=== PATIENT | female | born 1955 | race Caucasian/White ===

== ENCOUNTER → 2016-08-25 | Outpatient (CLI) | payer BC ==
[2016-08-25 08:56] LABS: CH 35.9; CHCM 33.9; HCT 47.7 % (34.0-46.0); HDW 2.63; HGB 15.7 gm/dL (11.4-16.0); MCH 34.9 pg (25.0-35.0); MCHC 32.8 g/dL (31.0-37.0); MCV 106.4 fL (80.0-100.0); Macrocytosis Moderate; Mean Platelet Volume 6.8; RBC 4.49 m/uL (3.80-5.40); RDW 14.3 % (11.5-15.5); WBC 5.1 k/uL (3.8-10.6)
[2016-08-25 09:04] LABS: INR 2.7 (<1.1); Prothrombin Time 25.7 sec (9.0-12.0)
[2016-08-25 09:26] LABS: Potassium 4.5 mmol/L (3.5-5.1)
== END | disposition home or self-care (01) ==
LOC: LABWHC1 07:55
PROVIDERS: ATTEND Internal Medicine Clinical Cardiac Electrophysiology
DX: I48.2 Chronic atrial fibrillation (principal); I49.01 Ventricular fibrillation; I42.8 Other cardiomyopathies
CPT/HCPCS: 36415; 80048; 85027; 85610

== ENCOUNTER 2016-09-08 11:43 | Day surgery (SDC) | payer BC ==
[2016-09-04 11:52] VITALS: BMI 25.0
[~2016-09-08 11:43] MED LIST: LACTATED RINGERS 1,000 ML IV SCH; ceFAZolin 1,000 MG in SODIUM CHLORIDE 0.9% IRRIGATIO 250 ML IRRIGATION ONE; ceFAZolin 2 GM in SODIUM CHLORIDE 0.9% 100 ML IVPB ONE
[2016-09-08 12:01] VITALS: RESP 16
[2016-09-08] MEDS ORDERED: SODIUM CHLORIDE 0.9% 1,000 ML IV ONE (12:11)
[2016-09-08 12:19] LABS: INR 1.5 (<1.1); Prothrombin Time 14.6 sec (9.0-12.0)
[2016-09-08] MEDS ORDERED: fentaNYL (PF) 50 MCG/ML 2 ML AMP ONE (14:20)
[2016-09-08] MEDS ORDERED: HYDROmorphone (PF) 1 MG/ML ONE (14:20)
[2016-09-08] MEDS ORDERED: MIDAZOLAM 2 MG/2 ML VIAL ONE (14:20)
[2016-09-08] MEDS ORDERED: LIDOCAINE 1% INJ 10MG/ML (20 ML MDV) ONE (14:20)
[2016-09-08] MEDS ORDERED: PROPOFOL 10 MG/ML 20 ML VIAL IV ONE (14:20)
[2016-09-08] MEDS ORDERED: LIDOCAINE 1% INJ 10MG/ML (20 ML MDV) SQ ONE ×2 (14:59→15:12)
[2016-09-08] MEDS ORDERED: ACETAMINOPHEN TAB 325 MG TAB PO PRN (15:34)
[2016-09-08] MEDS ORDERED: ACETAMINOPHEN IV (For NPO) 1,000 MG in EMPTY BAG 1 BAG IVPB ONE (15:34)
--- NOTE | 2016-09-08 17:15 | PCN ---
DATE OF PROCEDURE: This a 61 -year-old female who has a history of nonischemic cardiomyopathy and paroxysmal atrial fibrillation. She has past history of ventricular fibrillation and cardiac arrest, normal coronary arteries, left ventricular ejection fraction is severely reduced in 2007 to 30%. Last 2-D echo showed ( ) ejection fraction about 50%, ( ) congestive heart failure. The patient's device is at [facility], normal battery depletion. He is brought in for ICD generator change. The patient was brought to the EP Lab in a fasting state. Written informed consent was obtained prior to the procedure. The left shoulder area was prepped and draped as per protocol. 1% Lidocaine was used for local anesthesia. A 4 cm incision was made parallel to the deltopectoral groove about 1.5 cm medial to it. The incision was carried down to the level of the pectoralis muscle. A subfascial pocket was made. Hemostasis was assured and partial capsulectomy was performed and generator was a chronic generator ([id number], serial number [id number]) was explanted. The leads interrogated and the new generator was implanted. This was a [employer] medical model number PC4909-61Q, serial number [id number]. The chronic RV lead used was a Medtronic dual coil lead, model 6944, serial number [id number]. The R waves are 23.6 mV, pacing impedance of 740 ohms, pacing threshold 0.4 volts at 0.5 ms. The new generator was implanted and the wounds closed in 3 layers and dressed per protocol. Patient was in atrial fibrillation at the time of this study and INR was subtherapeutic. Therefore DFT testing will be deferred. Patient tolerated the procedure well without any immediate acute complications. IMPRESSION: Single-chamber ICD generator change normal battery depletion in this lady with history of ventricular fibrillation cardiomyopathy, Class II congestive heart failure and paroxysmal atrial fibrillation.
--- NOTE | 2016-09-08 17:18 | LTR ---
September 08, 2016 RE: Maria De JesusClover mensah Zak Dear Dr. Peter Moon: I had the pleasure of seeing Clover Maria De Jesusmakenna in electrophysiology follow-up. Clover underwent successful ICD generator change for normal battery depletion. She will be in the hospital overnight. After receiving antibiotics, she will be discharged home. She will continue to follow up with you as before. No changes in her medications have been made. Thank you for entrusting me in the care of your patient. Warm regards, Sincerely, ELIAS MCGUIRE MD
[2016-09-08] MEDS ORDERED: PRAVASTATIN SODIUM 20 MG TAB PO SCH (21:00)
[2016-09-08] MEDS: ceFAZolin 2 GM in SODIUM CHLORIDE 0.9% 100 ML IVPB SCH (21:15)
[2016-09-08] MEDS: METOPROLOL TARTRATE 50 MG TAB PO SCH (21:44)
[2016-09-08] MEDS: HYDROcodone/APAP 5-325MG 1 EACH TAB PO PRN (22:39)
[2016-09-09] MEDS: ceFAZolin 2 GM in SODIUM CHLORIDE 0.9% 100 ML IVPB SCH ×3 (03:23→13:58)
[2016-09-09] MEDS: HYDROcodone/APAP 5-325MG 1 EACH TAB PO PRN ×2 (03:23→08:02)
[2016-09-09] MEDS ORDERED: LEVOTHYROXINE 100 MCG TAB PO SCH (06:30)
[2016-09-09] MEDS: SODIUM CHLORIDE 0.9% 1,000 ML IV SCH (07:58)
--- NOTE | 2016-09-09 08:05 | P.PCN ---
Preoperative Diagnosis: She is doing well. No chest discomfort but she is tender over the ICD site. Breath sounds are normal heart sounds are normal Vitals are stable Afebrile 97.8F, pulse rate in the 60s, blood pressure 116/68 mmHg Breath sounds are normal Impression History of ventricular fibrillation status post ICD implant ICD at [facility], normal battery depletion History of cardio myopathy Paroxysmal atrial fibrillation Plan Discharge home after IV antibiotics Follow up in 5 days the office device clinic Follow-up with Dr. Marion in 4-6 months Postoperative Diagnosis: Procedure(s) Performed: Implants: Indications for Procedure: Operative Findings: Description of Procedure:
[2016-09-09] MEDS ORDERED: LOSARTAN 25 MG TAB PO SCH (09:00)
[2016-09-09] MEDS ORDERED: DIGOXIN 125 MCG TAB PO SCH (09:00)
[2016-09-09] MEDS ORDERED: METOPROLOL TARTRATE 50 MG TAB PO SCH (09:00)
[2016-09-09 11:32] VITALS: BP 95/58; PULSE 60; TEMP 98
[2016-09-09] MEDS: METOPROLOL TARTRATE 50 MG TAB PO SCH (12:08)
== END 2016-09-09 15:30 | disposition home or self-care (01) ==
LOC: CATHEP 11:43 → 3OBS 15:33 → CATHEP 09-09 15:30
PROVIDERS: ATTEND Internal Medicine Clinical Cardiac Electrophysiology
DX: Z45.02 Encounter for adjustment and management of automatic implantable cardiac defibrillator (principal); I48.0 Paroxysmal atrial fibrillation; I42.6 Alcoholic cardiomyopathy; I50.9 Heart failure, unspecified; E78.5 Hyperlipidemia, unspecified; Z79.01 Long term (current) use of anticoagulants; Z79.899 Other long term (current) drug therapy; Z88.1 Allergy status to other antibiotic agents; Z91.040 Latex allergy status
CPT/HCPCS: 33262; 85610; C1722; J2250; J0690 ×3; J2001; J3010; J1170; J0131; J2704

== ENCOUNTER → 2017-01-08 | Outpatient (CLI) | payer BC ==
[2017-01-08 15:54] LABS: CH 35.3; CHCM 32.2; HCT 47.6 % (34.0-46.0); HDW 2.61; HGB 15.7 gm/dL (11.4-16.0); MCH 36.3 pg (25.0-35.0); MCHC 32.9 g/dL (31.0-37.0); MCV 110.1 fL (80.0-100.0); Macrocytosis Marked; RBC 4.32 m/uL (3.80-5.40); RDW 14.1 % (11.5-15.5); WBC 4.9 k/uL (3.8-10.6)
[2017-01-08 16:16] LABS: Calcium 9.7 mg/dL (8.4-10.2); Potassium 4.1 mmol/L (3.5-5.1)
== END | disposition home or self-care (01) ==
LOC: LABWHC1 15:19
PROVIDERS: ATTEND Internal Medicine Clinical Cardiac Electrophysiology
DX: I48.2 Chronic atrial fibrillation (principal); I42.8 Other cardiomyopathies; I49.01 Ventricular fibrillation
CPT/HCPCS: 36415; 80048; 85027

== ENCOUNTER → 2017-04-23 | Outpatient (CLI) | payer BC ==
[2017-04-23 08:48] LABS: Basophils % (A) 0 %; Eosinophils # (A) 0.1 k/uL (0-0.7); Eosinophils % (A) 2 %; HCT 44.7 % (34.0-46.0); HGB 15.1 gm/dL (11.4-16.0); Lymphocytes # (A) 1.9 k/uL (1.0-4.8); Lymphocytes % (A) 39 %; MCH 34.4 pg (25.0-35.0); MCHC 33.7 g/dL (31.0-37.0); MCV 101.9 fL (80.0-100.0); Macrocytosis Slight; Mean Platelet Volume 6.8; Monocytes # (A) 0.4 k/uL (0-1.0); Monocytes % (A) 7 %; Neutrophils # (A) 2.4 k/uL (1.3-7.7); Neutrophils % (A) 49 %; Platelet Count 271 k/uL (150-450); RBC 4.39 m/uL (3.80-5.40); RDW 13.7 % (11.5-15.5); WBC 4.8 k/uL (3.8-10.6)
[2017-04-23 09:13] LABS: Albumin 4.2 g/dL (3.5-5.0); Calcium 9.9 mg/dL (8.4-10.2); Potassium 4.3 mmol/L (3.5-5.1); Total Bilirubin 0.9 mg/dL (0.2-1.3)
[2017-04-23 09:29] LABS: T4, Free (Free Thyroxine) 1.46 ng/dL (0.78-2.19)
== END | disposition home or self-care (01) ==
LOC: LABWHC1 08:24
PROVIDERS: ATTEND Physician Assistant
DX: Z00.00 Encounter for general adult medical examination without abnormal findings (principal); I10 Essential (primary) hypertension; Z20.9 Contact with and (suspected) exposure to unspecified communicable disease
CPT/HCPCS: 36415; 80053; 80061; 84439; 84443; 85025; 86803

== ENCOUNTER → 2017-06-18 | Outpatient (CLI) | payer BC ==
[2017-06-18 13:20] LABS: Calcium 9.7 mg/dL (8.4-10.2); Potassium 4.4 mmol/L (3.5-5.1)
[2017-06-18 13:27] LABS: MCHC 33.3 g/dL (31.0-37.0); MCV 102.2 fL (80.0-100.0); Macrocytosis Slight; Mean Platelet Volume 7.4; Platelet Count 203 k/uL (150-450); RBC 4.11 m/uL (3.80-5.40); RDW 14.5 % (11.5-15.5); WBC 5.2 k/uL (3.8-10.6)
== END | disposition home or self-care (01) ==
LOC: LABWHC1 12:24
PROVIDERS: ATTEND Internal Medicine Clinical Cardiac Electrophysiology
DX: I49.01 Ventricular fibrillation (principal); I48.0 Paroxysmal atrial fibrillation
CPT/HCPCS: 36415; 80048; 85027

== ENCOUNTER 2017-07-02 08:45 | Day surgery (SDC) | payer BC ==
[2017-06-30 09:35] VITALS: BMI 24.3
[2017-07-02] MEDS: SODIUM CHLORIDE 0.9% 1,000 ML IV SCH (11:55)
[2017-07-02 12:19] LABS: INR 1.9 (<1.2); Prothrombin Time 16.9 sec (9.0-12.0)
[2017-07-02] MEDS ORDERED: MIDAZOLAM 2 MG/2 ML VIAL ONE ×3 (12:32→16:15)
[2017-07-02] MEDS ORDERED: HEPARIN SODIUM,PORCINE 5,000 UNIT/ML 1 ML VIAL ONE (16:15)
[2017-07-02] MEDS ORDERED: ETOMIDATE 2 MG/ML 10 ML VIAL ONE (16:15)
[2017-07-02] MEDS ORDERED: ePHEDrine SULFATE/0.9% NACL/PF 50 MG/5 ML SYRINGE IV ONE (16:15)
[2017-07-02] MEDS ORDERED: SUCCINYLCHOLINE CHLORIDE 100 MG/5 ML SYR IV ONE (16:15)
[2017-07-02] MEDS ORDERED: LIDOCAINE 1% INJ 10MG/ML (20 ML MDV) ONE (16:15)
[2017-07-02] MEDS ORDERED: PHENYLEPHRINE-0.9% NACL SYG 1 MG/10 ML SYRINGE ONE (16:15)
[2017-07-02] MEDS ORDERED: PROTAMINE SULFATE 10 MG/ML 5 ML VIAL IV ONE (16:15)
[2017-07-02] MEDS ORDERED: fentaNYL (PF) 50 MCG/ML 2 ML AMP ONE (16:15)
[2017-07-02] MEDS ORDERED: ceFAZolin IN SWFI 2 GM/20 ML SYRINGE IVP STA (16:26)
[2017-07-02] MEDS ORDERED: LIDOCAINE 2% INJ 20 MG/ML SQ ONE (16:55)
[2017-07-02] MEDS ORDERED: HEPARIN SOD,PORK IN 0.45% NACL 25,000 UNIT in 0.45% NACL 1 500ML.BAG IV ONE (17:06)
[2017-07-02] MEDS ORDERED: IOPAMIDOL-370 100ML BTL INJ ONE (18:45)
--- NOTE | 2017-07-02 19:17 | P.PCN ---
Preoperative Diagnosis: Procedures performed (PVI - CRYO Ablation) Invasive hemodynamic monitoring while general anesthesia, right femoral arterial line for monitoring and sampling Comprehensive diagnostic EP study with attempted arrhythmia induction CS pacing and recording Drug infusion Catheter the mapping of the tachycardia (NOT 3D mapping) Intracardiac echocardiography Pulmonary vein isolation with transseptal and comprehensive EPS, [id number] Procedure details Patient was brought to the EP lab in a fasting state. Written informed consent was obtained prior to the procedure. Procedure performed under general anesthesia After initial muscle relaxant use, muscle relaxants were not given thereafter in order to assess phrenic nerve during procedure Patient prepped and draped as per protocol Full cryo-set up with standard preparation of the cryoablation tools done Femoral Venous access obtained on the right and left groins Sheaths placed Diagnostic catheters for the high right atrium, phrenic nerve stimulation and pacing, His bundle, RV and coronary sinus placed Intracardiac echo catheter placed Long sheath placed in the right atrium Left and right transseptal catheterization performed under intracardiac echo guidance Intravenous heparin with aCT above 300 Later, catheter positioning and balloon positioning under intracardiac echo Baseline measurements Initially patient was in atrial fibrillation. At the end of the procedure she aspirin tracely converted to sinus rhythm as I was removing the cryo sheath through the fossa ovalis QRS 88 ms Victoriano rhythm CO interval 150 ms sinus cycle length 1053 ms, QT interval 423 ms sinus node recovery time 1057 . AV node Wenckebach block 400 ms diagnostic EP study with drug infusion Atrial pacing performed from the high right atrium and the coronary sinus Transseptal catheterization performed RA pressure 12/6/10 LA pressure 19/6/12 Transseptal catheterization performed with standard sheath. The cryoablation sheath was then placed with an over the wire exchange without any acute complications. All 4 pulmonary veins were isolated in the following sequence: Left superior followed by left inferior followed by right superior followed by right inferior The cryo-ablation balloon was placed at the os of each vein 1.5 mL of IV dye was injected to confirm an occluded vein Goal during cryoablation was to achieve -30C in the first 30 seconds. If not the balloon was repositioned to obtain this result After completion of Cryoblation with durations from 180-240 seconds, entrance block was confirmed with the Attain circular catheter in a roving fashion around the antrum of the pulmonary veins Phrenic nerve pacing was performed from the SVC, right innominate vein area and diaphragm voltage was monitored as well as manually Parameter goals for each cryo freeze -30C by 30 seconds -40C by 60 seconds Mediated between minus 40-55 Thaw time greater than 10 seconds Balloon visualized by intracardiac echo to ensure that the proximal one third was within the left atrium/antrum Left superior pulmonary vein Single cryoablation, excellent temperatures complete isolation Left inferior pulmonary vein Single 3 second cryo lesion excellent temperatures complete isolation Right superior pulmonary vein, during phrenic nerve pacing First cryo lesion 90 seconds vein was isolated 90 seconds but temperature is a suboptimal Second cryoablation of 128 seconds with complete isolation but transient phrenic nerve paresis requiring premature termination of the cryoablation Right inferior pulmonary vein, during phrenic nerve pacing Single cryoablation, 180 seconds, complete isolation At the end of the procedure the Achieve catheter was once again used to check for entrance block Phrenic nerve stimulation was performed to confirm diaphragmatic stimulation the end of the procedure Cine fluoroscopy was performed at the very end of the procedure to confirm movement of both diaphragms with inspiration and expiration At the end of the procedure the patient was extubated Heparin was reversed Venous sheaths were removed and hemostasis assured Result Successful pulmonary vein isolation using cryo-ablation Right-sided esophagus which required deflection Complete entrance block in all 4 veins confirmed Evidence of phrenic nerve paresis, transient while performing cryoablation of the right superior pulmonary vein, at 128 seconds into the cryoablation Patient had previously received a 90 seconds cryoablation in this vein Complete recovery of phrenic nerve function within 10 minutes Anesthesia: GETA Condition: stable Disposition: observation
[2017-07-02] MEDS ORDERED: ACETAMINOPHEN IV (For NPO) 1,000 MG in EMPTY BAG 1 BAG IVPB ONE (19:20)
[2017-07-02] MEDS ORDERED: ACETAMINOPHEN TAB 325 MG TAB PO PRN (19:20)
[2017-07-02] MEDS ORDERED: HYDROcodone/APAP 5-325MG 1 EACH TAB PO PRN (19:20)
[2017-07-02] MEDS ORDERED: FAMOTIDINE 20 MG TAB PO SCH (21:00)
[2017-07-02] MEDS ORDERED: PRAVASTATIN SODIUM 20 MG TAB PO SCH (21:00)
[2017-07-02] MEDS: MAGNESIUM OXIDE 400 MG TAB PO SCH (21:51)
[2017-07-02] MEDS: APIXABAN 5 MG TAB PO SCH (21:51)
[2017-07-03] MEDS: SODIUM CHLORIDE 0.9% 1,000 ML IV SCH (02:47)
[2017-07-03] MEDS ORDERED: LEVOTHYROXINE 100 MCG TAB PO SCH (06:30)
[2017-07-03 07:54] LABS: Calcium 9.2 mg/dL (8.4-10.2); Potassium 4.5 mmol/L (3.5-5.1)
[2017-07-03] MEDS ORDERED: RX INFO: IV CONTRAST WAS GIVEN 1 EACH MISC MISCELLANE PRN (08:24)
[2017-07-03 08:25] VITALS: RESP 16
--- NOTE | 2017-07-03 08:34 | P.DS ---
Providers Attending physician: Bo Loyola Primary care physician: Peter Moon [facility] Course: Patient is doing well. She is lying comfortably in bed. Yesterday she had a bit of oozing from the groin were today her groins healing very well that is no hematoma there is no bleeding. She has no shortness of breath she is a mild discomfort in the chest and some discomfort in the left arm. She has a sore throat Rhythm is normal On examination blood pressure 104/52 mmHg pulse rate in the 70s, afebrile 97.6F Breath sounds are clear. No rhonchi no crackles no rub S1-S2 is normal no murmurs no gallops no rub Abdomen soft nontender Extremity is warm no edema No hematoma in either groins Impression Paroxysmal atrial fibrillation with RVR resulting in ICD shocks Status post pulmonary vein isolation using the cryoablation technique Transient right middle paresis during cryoablation of the right superior pulmonary vein Rapid resolution within 10 minutes Total cryo time for the right-sided pulmonary vein was about 4 minutes and the vein was completely isolated Complete isolation of all other veins Likely extrapulmonary foci of atrial fibrillation along the anterior septum and the fossa ovalis This was discussed with the patient Right-sided esophagus requiring deflection during the procedure Past history of cardio myopathy which has resolved History of ventricular fibrillation resulting in implantation of an ICD many years back Plan Reduce metoprolol to 50 mg twice daily Continue amiodarone 100 mg by mouth daily for 3 months and then I will consider stopping INR was subtherapeutic on warfarin Switched to ELIQUIS 5 mg twice daily which she will continue for 2 months and then we will go back to warfarin Follow-up in the office in one week attention YARITZA Jain/Dr. Loyola Patient Condition at Discharge: Stable Plan - Discharge Summary Discharge Rx Participant: No New Discharge Prescriptions: New Apixaban [Eliquis] 5 mg PO DAILY #60 tablet Discontinued Warfarin [Coumadin] 5 mg PO SUTUTHSA Warfarin [Coumadin] 2.5 mg PO MOWEFR No Action valACYclovir HCL [Valtrex] 1,000 mg PO DAILY Pravastatin Sodium [Pravachol] 20 mg PO HS Levothyroxine Sodium [Synthroid] 100 mcg PO DAILY [place]-3 Acid Ethyl Esters [Lovaza] 1 gm PO BID Calcium Carb-Vit D 500Mg-200Un [Oscal 500+D] 1 tab PO DAILY Folic Acid 1 mg PO DAILY Magnesium Oxide [Mag-Ox] 400 mg PO BID #180 tab Metoprolol Tartrate [Lopressor] 50 mg PO TID #270 tab Nitroglycerin Sl Tabs [Nitrostat] 0.4 mg SUBLINGUAL Q5M PRN #25 tab PRN Reason: Chest Pain Furosemide [Lasix] 20 mg PO DAILY PRN PRN Reason: Edema Amiodarone [Cordarone] 100 mg PO DAILY Discharge Medication List Pravastatin Sodium [Pravachol] 20 mg PO HS 05/17/15 [History] valACYclovir HCL [Valtrex] 1,000 mg PO DAILY 05/17/15 [History] Levothyroxine Sodium [Synthroid] 100 mcg PO DAILY 09/04/16 [History] Calcium Carb-Vit D 500Mg-200Un [Oscal 500+D] 1 tab PO DAILY 05/09/17 [History] Folic Acid 1 mg PO DAILY 05/09/17 [History] [place]-3 Acid Ethyl Esters [Lovaza] 1 gm PO BID 05/09/17 [History] Magnesium Oxide [Mag-Ox] 400 mg PO BID #180 tab 05/15/17 [Rx] Metoprolol Tartrate [Lopressor] 50 mg PO TID #270 tab 05/15/17 [Rx] Nitroglycerin Sl Tabs [Nitrostat] 0.4 mg SUBLINGUAL Q5M PRN #25 tab 05/15/17 [Rx ] Amiodarone [Cordarone] 100 mg PO DAILY 06/30/17 [History] Furosemide [Lasix] 20 mg PO DAILY PRN 06/30/17 [History] Apixaban [Eliquis] 5 mg PO DAILY #60 tablet 07/02/17 [Rx] Follow up Appointment(s)/Referral(s): Bo Loyola MD [STAFF PHYSICIAN] - 1 Week Activity/Diet/Wound Care/Special Instructions: Post EP study - Ablation instructions 1. Keep access sites dry for 2 days. 2. No heavy lifting or straining for 2 days. 3. Avoid bending the hips repeatedly for 2 days. 4. You may go up and down stairs slowly Call if the following is noted 1. Bleeding, increasing swelling or pain at the access sites. 2. Increasing chest discomfort, especially upon taking a deep breath. 3. Increasing shortness of breath, at rest or with exertion. 4. Undue cough / phlegm 5. Difficulty or pain while swallowing. 6. Pain or change in color in the extremities. 7. Fever, chills, rigors. 8. Increasing headache or neurologic symptoms. 9. Dizziness, fainting, palpitations Stop Coumadin Start ELIQUIS 5 g twice daily Please ask machine adjuster leader case trim to get her 1 month supply of ELIQUIS Continue all other medications unchanged Discharge Disposition: HOME SELF-CARE
[2017-07-03] MEDS ORDERED: SODIUM CHLORIDE 0.9% 1,000 ML IV SCH (08:45)
[2017-07-03] MEDS: MAGNESIUM OXIDE 400 MG TAB PO SCH (08:47)
[2017-07-03] MEDS: APIXABAN 5 MG TAB PO SCH (08:47)
[2017-07-03] MEDS ORDERED: AMIODARONE 100 MG TAB PO SCH (09:00)
--- NOTE | 2017-07-03 11:33 | CT ---
EXAMINATION TYPE: CT chest w con DATE OF EXAM: 07/03/2017 COMPARISON: NONE HISTORY: Ablation for atrial fibrillation, r/o mediastinal air CT DLP: 273.9 mGycm. Automated Exposure Control for Dose Reduction was Utilized. TECHNIQUE: CT scan of the thorax is performed following with IV Contrast, patient injected with 80 m L of Isovue 300. FINDINGS: LUNGS: There is tiny right pleural effusion. There is bibasilar curvilinear dependent atelectasis. Th ere is additional bibasilar linear atelectasis and/or scarring. No suspicious nodule or mass is prese nt. There is more focal atelectasis or consolidation indistinct from esophagus right infrahilar level near axial image 34 level of the azygoesophageal recess at level of the draining right inferior pulm onary vein axial image 36. MEDIASTINUM: There are no greater than 1 cm hilar or mediastinal lymph nodes. There are some prominen t but subcentimeter lymph nodes seen for reference pericarinal lymph node measuring 7 x 5 mm on axial image 24. No pericardial effusion is seen. There is persistent cardiomegaly with right sided pacema ker/defibrillator terminating in right ventricle. Mild fat stranding anterior superior mediastinum is present near axial image 21, evaluation slightly suboptimal due to artifact from pacemaker. There is fairly moderate to severe eccentric mixed plaque in the left subclavian artery most prominent near a xial image 14, no significant greater than 50% stenosis is clearly seen. No suspicious mediastinal ai r is identified. Visualized portion of esophagus is unremarkable. OTHER: Some high dense material in dependent portion of stomach is of uncertain etiology presumed rel ated to ingested food product. No suspicious hyperdense material is seen in the esophagus. IMPRESSION: No mediastinal air is seen. Perhaps mild anterior superior mediastinitis though this is f ar away from the area of ablation for atrial fibrillation. Focal atelectasis or consolidation at leve l of draining right inferior pulmonary vein adjacent to mid to distal aspect of esophagus is noted.
[2017-07-03] MEDS ORDERED: FOLIC ACID 1 MG TAB PO SCH (12:00)
[2017-07-03 16:29] VITALS: BP 119/55; PULSE 72; TEMP 97
== END 2017-07-03 17:49 | disposition home or self-care (01) ==
LOC: CATHEP 08:45 → 3OBS 18:46 → CATHEP 07-03 17:49
PROVIDERS: ATTEND Internal Medicine Clinical Cardiac Electrophysiology
DX: I48.0 Paroxysmal atrial fibrillation (principal); Z79.01 Long term (current) use of anticoagulants; I42.0 Dilated cardiomyopathy; I49.01 Ventricular fibrillation; E78.5 Hyperlipidemia, unspecified; Z95.810 Presence of automatic (implantable) cardiac defibrillator; N18.9 Chronic kidney disease, unspecified; Z85.72 Personal history of non-Hodgkin lymphomas; Z92.21 Personal history of antineoplastic chemotherapy; Z79.899 Other long term (current) drug therapy; Z88.1 Allergy status to other antibiotic agents; Z88.8 Allergy status to other drugs, medicaments and biological substances
CPT/HCPCS: 85347; 93662; 93609; 93656; 80048; 85610; 71260; C1894 ×3; C1769 ×4; C1730 ×2; C1759; C1893; C1733; C1766; J2001; J2250; J1644; J0690; Q9967 ×2

== ENCOUNTER → 2017-07-09 | Outpatient (CLI) | payer BC ==
[2017-07-09 10:16] LABS: Calcium 10.1 mg/dL (8.4-10.2); Potassium 4.6 mmol/L (3.5-5.1)
== END | disposition home or self-care (01) ==
LOC: LABWHC1 08:47
PROVIDERS: ATTEND Internal Medicine Clinical Cardiac Electrophysiology
DX: N18.9 Chronic kidney disease, unspecified (principal)
CPT/HCPCS: 36415; 80048

== ENCOUNTER → 2018-04-21 | Outpatient (CLI) | payer BC ==
--- NOTE | 2018-04-24 12:05 | MM ---
Reason for exam: screening (asymptomatic). Last mammogram was performed 2 years and 4 months ago. History: Patient is postmenopausal and has history of other cancer at age 42. ([place]) Family history of breast cancer in maternal grandmother at age 60. Benign MG pre op needle loc RT of the right breast, May 18, 2015. MG discontinued stereo core RT of the right breast, May 17, 2015. Benign right breast needle localzation of both breasts, March 01, 2012. Cancelled Right Mammotome of the right breast, February 23, 2012. MG Screening Mammo w CAD Bilateral CC and MLO view(s) were taken. Prior study comparison: December 26, 2015, right breast MG diagnostic mammo RT w CAD. April 24, 2015, right breast MG work up mamm w CAD RT. The breast tissue is heterogeneously dense. This may lower the sensitivity of mammography. There are benign-appearing bilateral calcifications. Stable distortion of the right upper central breast at posterior depth from benign excisional biopsy in 2016. ASSESSMENT: Benign, BI-RAD 2 RECOMMENDATION: Routine screening mammogram of both breasts in 1 year.
== END | disposition home or self-care (01) ==
LOC: RADMAMWWP 07:49
PROVIDERS: ATTEND Family Medicine
DX: Z12.31 Encounter for screening mammogram for malignant neoplasm of breast (principal)
CPT/HCPCS: 77067

== ENCOUNTER → 2019-02-04 | Outpatient (CLI) | payer BC ==
--- NOTE | 2019-02-04 14:33 | US ---
EXAMINATION TYPE: US kidneys/renal and bladder DATE OF EXAM: 02/04/2019 COMPARISON: US 01/03/16 CLINICAL HISTORY: N18.3 Chronic kidney disease, stage 3 (moderate). EXAM MEASUREMENTS: Right Kidney: 10.4 x 4.1 x 3.6 cm Left Kidney: 10.7 x 4.4 x 4.2 cm Post Void Residual Volume: 11.7 mL Right Kidney: No hydronephrosis or masses seen, thinning of the renal cortex. Left Kidney: No hydronephrosis or masses seen, thinning of the renal cortex. Bladder: wnl Bilateral Jets seen: Yes Normal Post Void Residual: Yes There is no evidence for hydronephrosis at this point in time. No nephrolithiasis is seen. No kika s are identified. The urinary bladder is anechoic. Bilateral ureteral jets are seen. IMPRESSION: Sonographic sequela of medical renal disease. No hydronephrosis or nephrolithiasis of eit her kidney. No new suspicious mass.
== END | disposition home or self-care (01) ==
LOC: RADUSWWP 13:38
PROVIDERS: ATTEND Internal Medicine Nephrology
DX: N18.3 Chronic kidney disease, stage 3 (moderate) (principal)
CPT/HCPCS: 76770

== ENCOUNTER → 2019-05-03 | Outpatient (CLI) | payer BC ==
[2019-05-03 14:50] LABS: Appearance,Urine Clear (Clear); Basophils % (A) 1 %; Bilirubin,Urine Negative (Negative); Blood,Urine Negative (Negative); Color,Urine Light Yellow; Eosinophils # (A) 0.1 k/uL (0-0.7); Eosinophils % (A) 2 %; Glucose,Urine (UA) Negative (Negative); HCT 45.6 % (34.0-46.0); HGB 15.3 gm/dL (11.4-16.0); Ketones,Urine Negative (Negative); Leukocyte Esterase,Urine Negative (Negative); Lymphocytes # (A) 1.4 k/uL (1.0-4.8); Lymphocytes % (A) 31 %; MCH 34.8 pg (25.0-35.0); MCHC 33.5 g/dL (31.0-37.0); Macrocytosis Slight; Monocytes # (A) 0.3 k/uL (0-1.0); Monocytes % (A) 7 %; Neutrophils # (A) 2.5 k/uL (1.3-7.7); Neutrophils % (A) 56 %; Nitrite,Urine Negative (Negative); PH, Urine 5.5 (5.0-8.0); Platelet Count 234 k/uL (150-450); Protein,Urine Negative (Negative); RBC 4.38 m/uL (3.80-5.40); RDW 13.2 % (11.5-15.5); Specific Gravity,Urine 1.007 (1.001-1.035); Urobilinogen,Urine <2.0 mg/dL (<2.0); WBC 4.4 k/uL (3.8-10.6)
[2019-05-03 19:06] LABS: Protein, Total 6.8 g/dL (6.2-8.2)
[2019-05-03 19:23] LABS: % Iron Saturation 21.24 (12.00-45.00); African American GFR (CKD) 36.6 (60.0-200.0); Albumin 4.8 g/dL (3.80-4.90); Anion Gap 11.4 mmol/L (4.00-12.00); BUN/Creat Ratio 20.59 Ratio (12.00-20.00); Calcium 9.7 mg/dL (8.7-10.3); Carbon Dioxide 26.6 mmol/L (21.6-31.8); Magnesium 2.1 mg/dL (1.5-2.4); Non-African American GFR(CKD) 31.5 (60.0-200.0); Phosphorus 2.9 mg/dL (2.4-5.1); Potassium 3.9 mmol/L (3.5-5.5); Uric Acid 7.1 mg/dL (2.9-7.7)
[2019-05-03 22:29] LABS: Creatinine,Urine Random 39.7 mg/dL
[2019-05-03 22:54] LABS: Total Protein,Urine Random <4.0 mg/dL (0.0-13.5)
[2019-05-04 13:50] LABS: Albumin 4.47 g/dL (3.80-4.90); Gamma Globulin 0.83 g/dL (0.70-1.50)
== END | disposition home or self-care (01) ==
LOC: LABWHC1 14:14
PROVIDERS: ATTEND Internal Medicine Nephrology
DX: N39.0 Urinary tract infection, site not specified (principal); N18.3 Chronic kidney disease, stage 3 (moderate); E55.9 Vitamin D deficiency, unspecified; N25.81 Secondary hyperparathyroidism of renal origin; M10.9 Gout, unspecified; D63.1 Anemia in chronic kidney disease; R80.9 Proteinuria, unspecified
CPT/HCPCS: 36415; 80048; 81003; 82040; 82306; 82570; 82728; 83540; 83550; 83735; 83970; 84100; 84156; 84165; 84550; 85025; 86335

== ENCOUNTER → 2019-06-07 | Outpatient (CLI) | payer BC ==
--- NOTE | 2019-06-08 11:19 | MM ---
Reason for exam: screening (asymptomatic). Last mammogram was performed 1 year and 2 months ago. History: Patient is postmenopausal and has history of other cancer at age 42. Family history of breast cancer in maternal grandmother at age 60. Benign MG pre op needle loc RT of the right breast, May 18, 2015. MG discontinued stereo core RT of the right breast, May 17, 2015. Benign right breast needle localzation of both breasts, March 01, 2012. Cancelled Right Mammotome of the right breast, February 23, 2012. Took hormonal contraceptives for 12 years. Physical Findings: A clinical breast exam by your physician is recommended on an annual basis and results should be correlated with mammographic findings. MG Screening Mammo w CAD Bilateral CC and MLO view(s) were taken. Prior study comparison: April 21, 2018, bilateral MG screening mammo w CAD. December 26, 2015, right breast MG diagnostic mammo RT w CAD. The breast tissue is heterogeneously dense. This may lower the sensitivity of mammography. Finding: There is architectural distortion in the upper quadrant, posterior position of the right breast consistent with know excisional changes from 2016. There is no discrete abnormality. Left axillary pacemaker. ASSESSMENT: Benign, BI-RAD 2 RECOMMENDATION: Routine screening mammogram of both breasts in 1 year.
== END | disposition home or self-care (01) ==
LOC: RADMAMWWP 16:19
PROVIDERS: ATTEND Family Medicine
DX: Z12.31 Encounter for screening mammogram for malignant neoplasm of breast (principal)
CPT/HCPCS: 77067

== ENCOUNTER → 2020-08-01 | Outpatient (CLI) | payer BC ==
--- NOTE | 2020-08-01 13:06 | BD ---
EXAMINATION TYPE: Axial Bone Density DATE OF EXAM: 08/01/2020 COMPARISON: NONE CLINICAL HISTORY: Height: 64 Weight: 159.8 FRAX RISK QUESTIONS: Alcohol (3 or more units per day): no Family History (Parent hip fracture): no Glucocorticoids (More than 3mos): no (Ex: prednisone, prednisolone, methylprednisolone, dexamethasone, and hydrocortisone). History of Fracture in Adulthood: no Secondary Osteoporosis: 1. Type 1 Diabetes: no 2. Hyperthyroidism: no 3. Menopause before 45: 4. Malnutrition: no 5. Chronic liver disease: no Rheumatoid Arthritis: no Current Tobacco Use: no RISK FACTORS HISTORY OF: Surgery to Spine/Hip(right/left)/Wrist (right/left): no Family History of Osteoporosis: yes Active: yes Diet low in dairy products/other sources of calcium: no Postmenopausal woman: yes Lost more than 2 inches in height since high school: no MEDICATIONS: eliquis, fenofibrate, lisinopril, magnesium, Metroprolol, omeprazole, pravastatin, Thyroid Medications: synthroid How Long: since 2006 Additional History: EXAM MEASUREMENTS: Bone mineral densitometry was performed using the nScaled System. Bone mineral density as measured about the Lumbar spine is: ----- L1-L4(G/cm2): 1.243 T Score Values are as follows: ----- L2: 0.5 ----- L3: 1.2 ----- L4: -0.1 ----- L1-L4: 0.5 Bone mineral density : baseline Bone mineral density about the R hip (g/cm2): 1.022 Bone mineral density about the L hip (g/cm2): 0.833 T Score values are as follows: -----R Neck: -0.1 -----L Neck: -1.5 -----R Total: -0.8 -----L Total: 0.1 Bone mineral density : baseline IMPRESSION: No evidence for osteoporosis or osteopenia. NOTE: T-SCORE=SD OF THE YOUNG ADULT MEAN.
--- NOTE | 2020-08-02 12:33 | MM ---
Reason for exam: screening (asymptomatic). Last mammogram was performed 1 year and 2 months ago. History: Patient is postmenopausal and has history of other cancer at age 42. Family history of breast cancer in maternal grandmother at age 60. Benign MG pre op needle loc RT of the right breast, May 18, 2015. MG discontinued stereo core RT of the right breast, May 17, 2015. Benign right breast needle localzation of both breasts, March 01, 2012. Cancelled Right Mammotome of the right breast, February 23, 2012. Took hormonal contraceptives for 12 years. Physical Findings: A clinical breast exam by your physician is recommended on an annual basis and results should be correlated with mammographic findings. MG Screening Mammo w CAD Bilateral CC and MLO view(s) were taken. Prior study comparison: June 07, 2019, bilateral MG screening mammo w CAD. April 21, 2018, bilateral MG screening mammo w CAD. The breast tissue is heterogeneously dense. This may lower the sensitivity of mammography. Finding #1: There is stable architectural distortion consistent with known lumpectomy and treatment changes. Finding #2: There are typically benign round calcifications in the left breast. There is no discrete abnormality. Left axillary pacemaker redemonstrated. ASSESSMENT: Benign, BI-RAD 2 RECOMMENDATION: Routine screening mammogram of both breasts in 1 year.
== END | disposition home or self-care (01) ==
LOC: RADMAMWWP 09:43
PROVIDERS: ATTEND Family Medicine
DX: Z12.31 Encounter for screening mammogram for malignant neoplasm of breast (principal); M85.852 Other specified disorders of bone density and structure, left thigh; Z80.3 Family history of malignant neoplasm of breast; Z78.0 Asymptomatic menopausal state
CPT/HCPCS: 77067; 77080

== ENCOUNTER → 2021-08-13 | Outpatient (CLI) | payer MEDICARE ==
--- NOTE | 2021-08-13 09:45 | XR ---
EXAMINATION TYPE: XR shoulder complete LT DATE OF EXAM: 08/13/2021 COMPARISON: NONE HISTORY: Pain TECHNIQUE: Three views are submitted. FINDINGS: The osseous structures are intact. There is no acute fracture or dislocation. AC joint arthropathy n oted. There is suggestion small spur along the inferior margin of the glenoid. Cardiac device is inci dentally noted.. IMPRESSION: 1. AC joint arthropathy. 2. Small spur along the inferior margin of the glenoid..
== END | disposition home or self-care (01) ==
LOC: RADXRMAIN 08:37
PROVIDERS: ATTEND Nurse Practitioner Family
DX: M12.812 Other specific arthropathies, not elsewhere classified, left shoulder (principal); M75.82 Other shoulder lesions, left shoulder

== ENCOUNTER → 2021-09-11 | Outpatient (CLI) | payer MEDICARE ==
--- NOTE | 2021-09-16 17:31 | MM ---
Reason for Exam: Screening (asymptomatic). Last mammogram was performed 1 year(s) and 2 month(s) ago. Patient History: Menarche at age 13. First Full-Term at age 29. Postmenopausal. Other cancer, age 42. Patient used Hormonal Contraceptives for 12 years. 05/18/2015, Benign Core Biopsy on the right side. 03/01/2012, Bilateral Benign Excisional Biopsy. 05/17/2015, MG discontinued stereo core RT on the right side. 02/23/2012, Cancelled Right Mammotome on the right side. Maternal grandmother had breast cancer, age 60. Risk Values: Alyce 5 year model risk: 2.8%. NCI Lifetime model risk: 10.3%. Prior Study Comparison: 04/21/2018 Bilateral Screening Mammogram, [facility]. 06/07/2019 Bilateral Screening Mammogram, [facility]. 08/01/2020 Bilateral Screening Mammogram, [facility]. Tissue Density: The breast tissue is heterogeneously dense. This may lower the sensitivity of mammography. Findings: Analyzed By CAD. Unchanged architectural distortion 12:00 posterior right breast. Adjacent nodularity just lateral on the CC view. Chronic nodularity medial posterior left CC view. Generator device projects over the left pectoralis. No significant change from prior exams. Overall Assessment: Benign, BI-RAD 2 Management: Screening Mammogram of both breasts in 1 year. 1. A clinical breast exam by your physician is recommended on an annual basis and results should be correlated with mammographic findings. 2. The patient should continue monthly self breast exams. 3. A negative mammogram should not preclude additional follow-up of suspicious palpable abnormalities. Electronically signed and approved by: Loki Brandt M.D. Radiologist
== END | disposition home or self-care (01) ==
LOC: RADMAMWWP 12:27
PROVIDERS: ATTEND Family Medicine
DX: Z12.31 Encounter for screening mammogram for malignant neoplasm of breast (principal); Z78.0 Asymptomatic menopausal state; Z80.3 Family history of malignant neoplasm of breast
CPT/HCPCS: 77063; 77067

== ENCOUNTER 2022-08-14 08:02 | Day surgery (SDC) | payer MEDICARE ==
[2022-08-12 10:03] VITALS: BMI 27.8
[~2022-08-14 08:02] MED LIST changes: -ceFAZolin 1,000 MG in SODIUM CHLORIDE 0.9% IRRIGATIO 250 ML IRRIGATION ONE; -ceFAZolin 2 GM in SODIUM CHLORIDE 0.9% 100 ML IVPB ONE
[2022-08-14 08:16] VITALS: TEMP 97.5
[2022-08-14] MEDS ORDERED: PROPOFOL 10 MG/ML 20 ML VIAL IV ONE (08:45)
--- NOTE | 2022-08-14 08:47 | P.GSHP ---
History of Present Illness H&P Date: 08/14/22 CHIEF COMPLAINT: Colon screen HISTORY OF PRESENT ILLNESS: The patient is a 67-year-old female who presents for colon screen. Lower endoscopy was offered for further evaluation and management. PAST MEDICAL HISTORY: Please see list. PAST SURGICAL HISTORY: Please see list. MEDICATIONS: Please see list. ALLERGIES: Please see list. SOCIAL HISTORY: No illicit drug use FAMILY HISTORY: No reports of Crohn disease or ulcerative colitis. REVIEW OF ORGAN SYSTEMS: CONSTITUTIONAL: No reports of fevers or chills. PHYSICAL EXAM: VITAL SIGNS: Stable GENERAL: Well-developed pleasant in no acute distress. HEENT: No scleral icterus. Extraocular movements grossly intact. Moist buccal mucosa. NECK: Supple without lymphadenopathy. CHEST: Unlabored respirations. Equal bilateral excursions. CARDIOVASCULAR: Regular rate and rhythm. Distal 2+ pulses. ABDOMEN: Soft, nontender, nondistended. MUSCULOSKELETAL: No clubbing, cyanosis, or edema. ASSESSMENT: 1. Colon screen. PLAN: 1. Recommend proceeding with a lower endoscopy Past Medical History Past Medical History: Atrial Fibrillation, Coronary Artery Disease (CAD), Cancer, Hyperlipidemia, Hypertension, Myocardial Infarction (MT), Pneumonia, Thyroid Disorder Additional Past Medical History / Comment(s): Hx NonHodgkin's Lymphoma 1997, treated with chemo. "Weakened kidneys from Chemo". Hx malignant thyroid nodules 2005. Last Myocardial Infarction Date:: 2007 History of Any Multi-Drug Resistant Organisms: None Reported Past Surgical History: AICD, Appendectomy, Breast Surgery, Tubal Ligation Additional Past Surgical History / Comment(s): THYROIDECTOMY, RIGHT BREAST BIOPSY/BENIGN, STEM CELL TRANSPLANT. Past Anesthesia/Blood Transfusion Reactions: Motion Sickness, Postoperative Nausea & Vomiting (PONV) Type of Cardiac Device: AICD Device Placement Date:: 2008 [facility] Past Psychological History: No Psychological Hx Reported Smoking Status: Never smoker Past Alcohol Use History: Occasional Past Drug Use History: None Reported - Past Family History Mother Family Medical History: No Reported History Medications and Allergies Home Medications Medication Instructions Recorded Confirmed Type Pravastatin Sodium [Pravachol] 20 mg PO HS 05/17/15 08/14/22 History valACYclovir HCL [Valtrex] 1,000 mg PO DAILY 05/17/15 08/14/22 History Levothyroxine Sodium [Synthroid] 100 mcg PO QAM 09/04/16 08/14/22 History Calcium Carb-Vit D 500Mg-5Mcg 1 tab PO DAILY 05/09/17 08/14/22 History [Oscal 500+D 5 Mcg (200 Iu)] Folic Acid 1 mg PO DAILY 05/09/17 08/14/22 History Nitroglycerin Sl Tabs [Nitrostat] 0.4 mg SUBLINGUAL Q5M PRN #25 tab 05/15/17 08/14/22 Rx Furosemide [Lasix] 20 mg PO DAILY PRN 06/30/17 08/14/22 History Apixaban [Eliquis] 5 mg PO BID 08/12/22 08/12/22 History Digoxin [Lanoxin] 125 mcg PO DAILY 08/12/22 08/14/22 History Ezetimibe [Zetia] 10 mg PO DAILY 08/12/22 08/14/22 History Fenofibrate 54 mg PO DAILY 08/12/22 08/14/22 History Magnesium Oxide [Mag-Ox] 400 mg PO DAILY 08/12/22 08/14/22 History Metoprolol Tartrate [Lopressor] 50 mg PO TID 08/12/22 08/14/22 History Omeprazole 40 mg PO DAILY 08/12/22 08/14/22 History lisinopriL 2.5 mg PO HS 08/12/22 08/14/22 History Allergies Allergy/AdvReac Type Severity Reaction Status Date / Time latex Allergy RED SKIN Verified 08/12/22 09:48 silicone Allergy rejected Verified 08/12/22 09:48 silicone in bypass tetracycline Allergy passed Verified 08/12/22 09:48 out/vomiting Surgical - Exam Vital Signs Temp Pulse Resp BP Pulse Ox 97.5 F L 85 16 153/70 98 08/14/22 08:15 08/14/22 08:15 08/14/22 08:15 08/14/22 08:15 08/14/22 08:15
--- NOTE | 2022-08-14 09:17 | P.PCN ---
Date of Procedure: 08/14/22 Description of Procedure: PREOPERATIVE DIAGNOSIS: Personal history of colon polyps Colonoscopy screening POSTOPERATIVE DIAGNOSIS: Tubular adenoma ascending colon Severe sigmoid diverticulosis Internal hemorrhoids, grade 2 Moderate to severe pandiverticulosis OPERATION: Colonoscopy to the ileocecal valve and appendiceal orifice, cecum Colonoscopy with hot snare polypectomy SURGEON: Makenna Flynn MD. ANESTHESIA: MAC. INDICATIONS: The patient is an 67-year-old female who presents personal history of colon polyps. Last colonoscopy 5 years. Benefits and risks were described and informed consent was obtained. DESCRIPTION OF PROCEDURE: The patient had undergone Sutab prep. The patient had been brought into the operating room and laid in the left lateral decubitus position. After adequate intravenous sedation, the rectum was examined with 2% lidocaine jelly. External hemorrhoids were encountered. The rectal tone was within normal limits. No lesions were palpated in the rectal vault. An Olympus colonoscope was advanced until the cecum, ileocecal valve and appendiceal orifice were clearly viewed. The prep was excellent. Sigmoid diverticulosis was encountered with moderate to severe pandiverticulosis. Colonic polyps were found and removed. No evidence of focal colitis was found. Retroflexion of the scope demonstrated grade 2 internal hemorrhoids without active bleeding or inflammation. The colon was desufflated. The patient had tolerated the procedure well. Withdrawal time was over 6 minutes. FINDINGS: Aronchick preparation quality scale 1 (1-5) Internal hemorrhoids, grade 2 External hemorrhoids, grade 2. No arteriovenous malformations. Sigmoid diverticulosis, severe Pandiverticulosis, severe Removal of 1 polyp: - Snare polypectomy of ascending colon, 10 mm tubulovillous adenoma polyp. No focal colitis. RECOMMENDATIONS: Repeat colonoscopy in 3 years, 2025 Plan - Discharge Summary Discharge Rx Participant: No New Discharge Prescriptions: Continue valACYclovir HCL [Valtrex] 1,000 mg PO DAILY Pravastatin Sodium [Pravachol] 20 mg PO HS Levothyroxine Sodium [Synthroid] 100 mcg PO QAM Calcium Carb-Vit D 500Mg-5Mcg [Oscal 500+D 5 Mcg (200 Iu)] 1 tab PO DAILY Folic Acid 1 mg PO DAILY Nitroglycerin Sl Tabs [Nitrostat] 0.4 mg SUBLINGUAL Q5M PRN #25 tab PRN Reason: Chest Pain Furosemide [Lasix] 20 mg PO DAILY PRN PRN Reason: Edema Metoprolol Tartrate [Lopressor] 50 mg PO TID Ezetimibe [Zetia] 10 mg PO DAILY Digoxin [Lanoxin] 125 mcg PO DAILY lisinopriL 2.5 mg PO HS Fenofibrate 54 mg PO DAILY Magnesium Oxide [Mag-Ox] 400 mg PO DAILY Omeprazole 40 mg PO DAILY Discontinued Apixaban [Eliquis] 5 mg PO BID Discharge Medication List Pravastatin Sodium [Pravachol] 20 mg PO HS 05/17/15 [History] valACYclovir HCL [Valtrex] 1,000 mg PO DAILY 05/17/15 [History] Levothyroxine Sodium [Synthroid] 100 mcg PO QAM 09/04/16 [History] Calcium Carb-Vit D 500Mg-5Mcg [Oscal 500+D 5 Mcg (200 Iu)] 1 tab PO DAILY 05/09/17 [History] Folic Acid 1 mg PO DAILY 05/09/17 [History] Nitroglycerin Sl Tabs [Nitrostat] 0.4 mg SUBLINGUAL Q5M PRN #25 tab 05/15/17 [Rx] Furosemide [Lasix] 20 mg PO DAILY PRN 06/30/17 [History] Digoxin [Lanoxin] 125 mcg PO DAILY 08/12/22 [History] Ezetimibe [Zetia] 10 mg PO DAILY 08/12/22 [History] Fenofibrate 54 mg PO DAILY 08/12/22 [History] Magnesium Oxide [Mag-Ox] 400 mg PO DAILY 08/12/22 [History] Metoprolol Tartrate [Lopressor] 50 mg PO TID 08/12/22 [History] Omeprazole 40 mg PO DAILY 08/12/22 [History] lisinopriL 2.5 mg PO HS 08/12/22 [History] Follow up Appointment(s)/Referral(s): Makenna Flynn MD [STAFF PHYSICIAN] - As Needed Patient Instructions/Handouts: *Surgery [facility] - (Anesthesia) Discharge Instruc tions Outpatient Surgery, Colonoscopy (DC), Colorectal Polyps (GEN), Diverticulosis Diet (GEN), Diverticulosis (DC) Activity/Diet/Wound Care/Special Instructions: START BLOOD THINNER ThursdayAUGUST 16 Repeat colonoscopy in 3 years, 2025 Discharge Disposition: HOME SELF-CARE
[2022-08-14 09:21] VITALS: BP 124/81; PULSE 86; RESP 17
== END 2022-08-14 09:51 | disposition home or self-care (01) ==
LOC: ORWHC2ENDO 08:02
PROVIDERS: ATTEND Surgery Plastic and Reconstructive Surgery
DX: Z12.11 Encounter for screening for malignant neoplasm of colon (principal); D12.2 Benign neoplasm of ascending colon; K57.30 Diverticulosis of large intestine without perforation or abscess without bleeding; I10 Essential (primary) hypertension; I25.2 Old myocardial infarction; K64.1 Second degree hemorrhoids; E78.5 Hyperlipidemia, unspecified; I25.10 Atherosclerotic heart disease of native coronary artery without angina pectoris; I48.91 Unspecified atrial fibrillation; K64.8 Other hemorrhoids; Z86.010 Personal history of colon polyps; Z79.01 Long term (current) use of anticoagulants; Z90.49 Acquired absence of other specified parts of digestive tract; Z94.84 Stem cells transplant status; Z95.810 Presence of automatic (implantable) cardiac defibrillator; Z86.59 Personal history of other mental and behavioral disorders; Z79.899 Other long term (current) drug therapy
CPT/HCPCS: 45385; J2704; 88305

== ENCOUNTER → 2022-09-26 | Outpatient (CLI) | payer MEDICARE ==
--- NOTE | 2022-09-29 06:07 | MM ---
Reason for Exam: Screening (asymptomatic). Last screening mammogram was performed 12 month(s) ago. Patient History: Menarche at age 13. First Full-Term at age 29. Postmenopausal. Other cancer, age 42. Patient used Hormonal Contraceptives for 12 years. 05/18/2015, Benign Core Biopsy on the right side. 03/01/2012, Bilateral Benign Excisional Biopsy. 05/17/2015, MG discontinued stereo core RT on the right side. 02/23/2012, Cancelled Right Mammotome on the right side. Maternal grandmother had breast cancer, age 60. Risk Values: Alyce 5 year model risk: 2.8%. NCI Lifetime model risk: 9.9%. Prior Study Comparison: 06/07/2019 Bilateral Screening Mammogram, [facility]. 08/01/2020 Bilateral Screening Mammogram, [facility]. 09/11/2021 Bilateral MG 3D screening mammo w/cad, [facility]. Tissue Density: The breast tissue is heterogeneously dense. This may lower the sensitivity of mammography. Findings: Analyzed By CAD. There is no suspicious group of microcalcifications or new suspicious mass in either breast. Unchanged architectural distortion at 12:00 posterior right breast. Adjacent nodularity just lateral on the CC view appears unchanged. Chronic nodularity in the left breast is redemonstrated. Generator device projects over the left pectoralis. No significant change from priors. Overall Assessment: Benign, BI-RAD 2 Management: Screening Mammogram of both breasts in 1 year. A clinical breast exam by your physician is recommended on an annual basis and results should be correlated with mammographic findings. Note on Alyce scores and lifetime risk: 1. A Alyce score greater than 3% is considered moderate risk. If this is the case, consider specialist referral to assess eligibility for a risk reducing agent. If overall lifetime risk for the development of breast cancer is 20% or higher, the patient may qualify for future screening with alternating mammogram and breast MRI. Electronically signed and approved by: Esteban Vaughn D.O.
== END | disposition home or self-care (01) ==
LOC: RADMAMWWP 10:55
PROVIDERS: ATTEND Family Medicine
DX: Z12.31 Encounter for screening mammogram for malignant neoplasm of breast (principal); Z78.0 Asymptomatic menopausal state; Z80.3 Family history of malignant neoplasm of breast
CPT/HCPCS: 77063; 77067

== ENCOUNTER → 2023-04-15 | Outpatient (CLI) | payer MEDICARE ==
--- NOTE | 2023-04-15 07:52 | MM ---
Reason for Exam: Clinical finding. Last screening mammogram was performed 7 month(s) ago. Patient History: Menarche at age 13. First Full-Term at age 29. Postmenopausal. Other cancer, age 42. Patient used Hormonal Contraceptives for 12 years. 05/18/2015, Benign Core Biopsy on the right side. 03/01/2012, Bilateral Benign Excisional Biopsy. 05/17/2015, MG discontinued stereo core RT on the right side. 02/23/2012, Cancelled Right Mammotome on the right side. Maternal grandmother had breast cancer, age 60. Risk Values: Alyce 5 year model risk: 2.8%. NCI Lifetime model risk: 9.5%. Prior Study Comparison: 08/01/2020 Bilateral Screening Mammogram, [facility]. 09/11/2021 Bilateral MG 3D screening mammo w/cad, [facility]. 09/26/2022 Bilateral MG 3D screening mammo w/cad, [facility]. Tissue Density: Right: The breast tissue is heterogeneously dense. This may lower the sensitivity of mammography. Findings: Analyzed By CAD. Pattern appears stable. There is distortion at prior biopsy site 12:00 right breast. On the mediolateral oblique view this is adjacent to a palpable region. No suspicious groups of microcalcifications, spiculated or lobular masses, architectural distortion or other secondary signs of malignancy are mammographically apparent. Overall Assessment: Incomplete: need additional imaging evaluation, BI-RAD 0 Management: Diagnostic Breast Ultrasound of the right breast. A negative mammogram report should not preclude additional follow up of suspicious palpable abnormalities. Patient should continue monthly self breast exam. A clinical breast exam by your physician is recommended on an annual basis and results should be correlated with mammographic findings. Electronically signed and approved by: Sriram Pena D.O. Radiologis
--- NOTE | 2023-04-15 08:51 | USB ---
Reason for Exam: Clinical finding. Patient History: Menarche at age 13. First Full-Term at age 29. Postmenopausal. Other cancer, age 42. Patient used Hormonal Contraceptives for 12 years. 05/18/2015, Benign Core Biopsy on the right side. 03/01/2012, Bilateral Benign Excisional Biopsy. 05/17/2015, MG discontinued stereo core RT on the right side. 02/23/2012, Cancelled Right Mammotome on the right side. Maternal grandmother had breast cancer, age 60. Risk Values: Alyce 5 year model risk: 2.8%. NCI Lifetime model risk: 9.5%. Technique: Method: Targeted. Prior Study Comparison: 08/01/2020 Bilateral Screening Mammogram, [facility]. 09/11/2021 Bilateral MG 3D screening mammo w/cad, [facility]. 09/26/2022 Bilateral MG 3D screening mammo w/cad, [facility]. Findings: The area of palpable concern of the right breast, the axilla of the right breast and the retroareolar of the right breast were scanned. No solid or cystic masses are identified.. Overall Assessment: Negative, BI-RAD 1 Management: Screening Mammogram of both breasts in 6 months. A clinical breast exam by your physician is recommended on an annual basis and results should be correlated with mammographic findings. This exam should not preclude additional follow-up of suspicious palpable abnormalities. Results were given to the patient verbally at the time of exam. Electronically signed and approved by: Sriram Pena D.O. Radiologis
== END | disposition home or self-care (01) ==
LOC: RADMAMWWP 07:29
PROVIDERS: ATTEND Family Medicine
DX: N63.10 Unspecified lump in the right breast, unspecified quadrant (principal); R92.331 Mammographic heterogeneous density, right breast; Z80.3 Family history of malignant neoplasm of breast; Z78.0 Asymptomatic menopausal state
CPT/HCPCS: 77065; 76642; G0279; 77061

== ENCOUNTER → 2023-08-06 | Outpatient (CLI) | payer MEDICARE ==
--- NOTE | 2023-08-06 21:37 | US ---
EXAMINATION TYPE: US pelvis complete transvag DATE OF EXAM: 08/06/2023 COMPARISON: NONE CLINICAL INDICATION: Female, 68 years old with history of R19.09 OTHER INTRA-ABDOMINAL AND PELVIC SWE LLING,; Pelvic swelling TECHNIQUE: . Transabdominal sonographic images of the pelvis were acquired. Transvaginal sonographi c images were medically necessary to better assess the following anatomy: ovaries Date of LMP: Postmenopausal EXAM MEASUREMENTS: Uterus: 6.2 x 2.9 x 3.4 cm Endometrial Stripe: 0.4 cm Right Ovary: not seen Left Ovary: not seen 1. Uterus: heterogeneous 2. Endometrium: appears wnl 3. Right Ovary: not seen due to overlying bowel gas 4. Left Ovary: not seen due to overlying bowel gas 5. Bilateral Adnexa: wnl 6. Posterior cul-de-sac: wnl IMPRESSION: 1. Normal-appearing uterus and endometrium. 2. Ovaries not seen due to bowel gas. 3. No adnexal masses identified. 4. No free fluid in the cul-de-sac.
== END | disposition home or self-care (01) ==
LOC: RADUSWWP 14:02
PROVIDERS: ATTEND Family Medicine
DX: R19.09 Other intra-abdominal and pelvic swelling, mass and lump (principal)
CPT/HCPCS: 76830; 76856

== ENCOUNTER → 2023-09-30 | Outpatient (CLI) | payer MEDICARE ==
--- NOTE | 2023-10-04 17:21 | MM ---
Reason for Exam: Screening (asymptomatic). Last screening mammogram was performed 12 month(s) ago. Patient History: Menarche at age 13. First Full-Term at age 29. Postmenopausal. Other cancer, age 42. Patient used Hormonal Contraceptives for 12 years. 05/18/2015, Benign Core Biopsy on the right side. 03/01/2012, Bilateral Benign Excisional Biopsy. 05/17/2015, MG discontinued stereo core RT on the right side. 02/23/2012, Cancelled Right Mammotome on the right side. Maternal grandmother had breast cancer, age 60. Risk Values: Alyce 5 year model risk: 2.8%. NCI Lifetime model risk: 9.5%. Prior Study Comparison: 09/11/2021 Bilateral MG 3D screening mammo w/cad, [facility]. 09/26/2022 Bilateral MG 3D screening mammo w/cad, [facility]. 04/15/2023 Right MG 3D diag mammo w/cad RT, [facility]. Tissue Density: The breasts are heterogeneously dense, which may obscure small masses. Findings: Analyzed By CAD. Redemonstrated postexcisional scar superior right breast. Generator device projecting over the left pectoralis. Multiple posterior lateral left breast. No significant change from prior exams. Overall Assessment: Benign, BI-RAD 2 Management: Screening Mammogram of both breasts in 1 year. . Patient should continue monthly self-breast exams. A clinical breast exam by your physician is recommended on an annual basis. This exam should not preclude additional follow-up of suspicious palpable abnormalities. Note on Alyce scores and lifetime risk: 1. A Alyce score greater than 3% is considered moderate risk. If this is the case, consider specialist referral to assess eligibility for a risk reducing agent. 2. If overall lifetime risk for the development of breast cancer is 20% or higher, the patient may qualify for future screening with alternating mammogram and breast MRI. Electronically signed and approved by: Loki Brandt M.D. Radiologist
== END | disposition home or self-care (01) ==
LOC: RADMAMWWP 08:48
PROVIDERS: ATTEND Family Medicine
DX: Z12.31 Encounter for screening mammogram for malignant neoplasm of breast (principal); Z78.0 Asymptomatic menopausal state; Z80.3 Family history of malignant neoplasm of breast
CPT/HCPCS: 77063; 77067

== ENCOUNTER → 2024-09-30 | Outpatient (CLI) | payer MEDICARE ==
--- NOTE | 2024-09-30 14:24 | MM ---
Reason for Exam: Screening (asymptomatic). Last screening mammogram was performed 12 month(s) ago. Patient History: Menarche at age 13. First Full-Term at age 29. Postmenopausal. Patient has history of breast feeding. Other cancer, age 42. Patient used Hormonal Contraceptives for 12 years. 05/18/2015, Benign Core Biopsy on the right side. 03/01/2012, Bilateral Benign Excisional Biopsy. 05/17/2015, MG discontinued stereo core RT on the right side. 02/23/2012, Cancelled Right Mammotome on the right side. Maternal grandmother had breast cancer, age 60. Risk Values: Alyce 5 year model risk: 2.8%. NCI Lifetime model risk: 9.1%. Prior Study Comparison: 09/26/2022 Bilateral MG 3D screening mammo w/cad, [facility]. 04/15/2023 Right MG 3D diag mammo w/cad RT, [facility]. 09/30/2023 Bilateral MG 3D screening mammo w/cad, [facility]. Tissue Density: The breasts are heterogeneously dense, which may obscure small masses. Findings: Analyzed By CAD. Right breast: Stable architectural distortion in the right breast. There is no suspicious group of microcalcifications or new suspicious mass. Left breast: There is no suspicious group of microcalcifications or new suspicious mass. Right breast: Stable architectural distortion in the right breast. There is no suspicious group of microcalcifications or new suspicious mass. Left breast: There is no suspicious group of microcalcifications or new suspicious mass. The left axilla is obscured from cardiac conduction device. Overall Assessment: Benign, BI-RAD 2 Management: Screening Mammogram of both breasts in [address] [facility] will attempt to contact patient to return for supplemental views and ultrasound if indicated. Patient should continue monthly self-breast exams. A clinical breast exam by your physician is recommended on an annual basis. This exam should not preclude additional follow-up of suspicious palpable abnormalities. Note on Alyce scores and lifetime risk: 1. A Alyce score greater than 3% is considered moderate risk. If this is the case, consider specialist referral to assess eligibility for a risk reducing agent. 2. If overall lifetime risk for the development of breast cancer is 20% or higher, the patient may qualify for future screening with alternating mammogram and breast MRI. [facility], , 09/30/2024 2:23 PM. Electronically signed and approved by: Jefferson Toth DO
--- NOTE | 2024-10-02 07:24 | BD ---
EXAMINATION TYPE: Axial Bone Density DATE OF EXAM: 09/30/2024 CLINICAL HISTORY: 69 years old Female. ICD-10 CODE: Z78.0, [place] STATE , Additional History: Height: 64 Weight: 155 FRAX RISK QUESTIONS: Secondary Osteoporosis: RISK FACTORS HISTORY OF: MEDICATIONS: Thyroid Medications: Which medication: Levothyroxine How Long: since 2006 EXAM MEASUREMENTS: Bone mineral densitometry was performed using the [employer] System. Bone mineral density as measured about the Lumbar spine is: ----- L1-L4(G/cm2): 1.279 T Score Values are as follows: ----- L1: 0.6 ----- L2: 0.9 ----- L3: 1.4 ----- L4: 0.3 ----- L1-L4: 0.8 Z Score Values are as follows: ----- L1: 2.1 ----- L2: 2.4 ----- L3: 2.8 ----- L4: 1.8 ----- L1-L4: 2.3 Bone mineral density has: Increased 2.9% since study of: 08-01-20 Bone mineral density about the R hip (g/cm2): 0.959 Bone mineral density about the L hip (g/cm2): 1.059 T Score values are as follows: -----R Neck: -1.0 -----L Neck: -0.3 -----R Total: -0.4 -----L Total: 0.4 Z Score values are as follows: -----R Neck: 0.5 -----L Neck: 1.2 -----R Total: 0.9 -----L Total: 1.7 Bone mineral density has: Increased 4.3% since study of: 08-01-20 FRAX%s: The graph provided illustrates a 8.7% chance for a major osteoporotic fx and a 0.8% chance fo r the hips probability for fx in 10 years time. IMPRESSION: Normal (Values between +1 and -1 indicate normal bone mass). Consider repeating this study in 5 year s or sooner if there is some new clinical indication. NOTE: T-SCORE=SD OF THE YOUNG ADULT MEAN. [facility], , 10/02/2024 7:22 AM
== END | disposition home or self-care (01) ==
LOC: RADBDWWP 13:13
PROVIDERS: ATTEND Family Medicine
DX: Z12.31 Encounter for screening mammogram for malignant neoplasm of breast (principal); R92.333 Mammographic heterogeneous density, bilateral breasts; Z78.0 Asymptomatic menopausal state; Z80.3 Family history of malignant neoplasm of breast; Z92.0 Personal history of contraception
CPT/HCPCS: 77063; 77067; 77080